=== PATIENT | female | born 1980 | race Caucasian/White ===

== ENCOUNTER 2025-06-16 08:02 | Outpatient (AMB) | payer OTHER, SELFPAY ==
--- NOTE | 2025-06-16 10:08 | MHC.OFFVISWM ---
VS Expanded 06/16/25 10:36 Height 5 ft 3 in Weight 256 lb BMI 45.3 Body Fat % 49.5 Body Fat Mass 126.8 Fat Free Mass 129.2 Visceral Fat Rating 16 Body Water % 36.1 Body Water Mass 92.4 Basal Metabolic Rate/Score 1,853 Intake Visit Reasons: [employer] [facility] BMI 45.4 Allergies lamotrigine (From Lamictal) Allergy (Mild, Verified 06/16/25 10:08) HIVES lithium Allergy (Unknown, Verified 06/16/25 10:08) Unknown Medication List - Last Reconciled 06/16/25 by Rigo Jones MD atorvastatin 40 mg PO DAILY cariprazine (Vraylar) 3 mg PO DAILY fluticasone propionate 50 mcg/actuation 2 sprays intranasal DAILY loratadine 10 mg PO DAILY lorazepam 0.5 - 1 mg PO TID tirzepatide (weight loss) (Zepbound) 5 mg subcut QWEEK topiramate 50 mg PO BID HPI HPI [employer] [facility] BMI 45.4: Details: Start time: 9.59am, End time: 10.44am ?I spent 40 minutes speaking with the patient on the phone plus an additional 5 minutes reviewing and updating records for a total of 45 minutes HPI Comments Details: Previous weight loss efforts: Semaglutide (lost and gained 40lbs), Tirzepatide Wakes up: 8am, Sleeps: 11pm Breakfast: Premier protein shake liquid Lunch: Premier shake Dinner: 5pm (shrimps, chicken, eat out) Snacks: 10am (Mor crackers with peanut butter) Exercise: Gym membership Beverages: Coffee: (2 cups/d with vanilla creamer), Tea: none, Soda: Diet Coke, Juice: none, ETOH: none PFSH Medical History (Updated 06/16/25 @ 10:13 by Rigo Jones MD) Anxiety Bipolar 1 disorder Hyperlipidemia Morbid obesity Surgical History (Updated 05/17/25 @ 09:10 by Marianela Castellon CMA) Hx of wisdom tooth extraction Hx of dilation and curettage Family History (Updated 05/17/25 @ 09:12 by Marianela Castellon CMA) Mother Diabetes Mental health disorder High cholesterol Hypertension Father High cholesterol Hypertension Social History (Updated 05/17/25 @ 09:12 by ANDREA Pina Alcohol intake: never Tobacco use type: Smokeless Tobacco Physical Exam Vital Signs: BMI result Body Mass Index 45.3 Telehealth Telehealth Telehealth Platform: Telephone Location of provider rendering services: practice address Location of patient: address on file Patient Identification confirmed using: Name, : Yes Telehealth method: voice only Patient verbally consented to treatment: Yes Patient verbally consented to billing insurance company: Yes Patient informed of any privacy concerns related to visit: Yes Minutes spent on Phone/Video with Pt.: 45 Assessment & Plan Assessment & Plan (1) Morbid obesity: Code(s): E66.01 - Morbid (severe) obesity due to excess calories Category: Medical Plan: 1. As we discussed, based on your present BMI you are approximately 130lbs overweight. In my opinion, for any weight loss strategy to be successful should have a high probability to help you lose at least 110lbs out of 130lbs of the extra weight you carry. We discussed about the lap sleeve gastrectomy. In my opinion this is the best option to solve your problem based on your situation and should be used in conjunction with the two previous options. A good strategy to make this decision to proceed with surgery, is to set some goals with the lifestyle intervention and medication options: If you don't lose at least 10lbs the first 6 weeks after starting the program or at least 10% in 3 months. ?I emphasized the importance of close follow-up, adherence to instructions and good communication. The surgery does not replace the need to change your lifestlyle which is the cause of the obesity problem. The surgery provides the motivation to try again to change your lifestyle, it reduces the appetite and make the transition to a better lifestyle easier and doubles the amount of weight you would lose compared to doing the lifestyle change without the surgery. You will need to be on a liquid diet with protein shakes for 2 weeks before surgery to maximize weight loss and boost your nutritional status to recover better from surgery and also for the first two weeks after surgery to let the stomach heal before we introduce other foods. After the first 2 weeks we will introduce protein bars and soft foods like scrambled eggs, cottage cheese and yogurt and after the 6th week will introduce meat, fish and cooked vegetables in small amounts. Over time you should be able to eat everything in small amounts. Side effects like nausea, vomiting, heartburn or abdominal pain are not common in the practice unless you are not following in the practice. This operation requires lifetime commitment to following in our practice and communication with me. You will much less weight and experience side effects if you don?t communicate or not following in the practice. Complications are rare and in our practice is about 1/10 of the national average. 2. You will receive a link of our software carly to generate an individualized nutritional and exercise plan specific for you. Please send me a screenshot of the plans you will generate Meal to include lean meat (beef, fish, pork, turkey, chicken), or english yogurt, or egg whites, or beans with a salad with olive oil and fruits (berries, pears, apples, kiwi). Avoid salt, breads, potatoes, rice, pasta, desserts. ?3. If you choose shakes, each shake would be drunk slowly, like coffee in a period of 2 hours. ?4. If you choose bars, cut each bar in 4 pieces and eat each piece in 30min ?to make each bar last 2 hours. ?5. I emphasized the importance of measuring accurately the food portion and measure it when serving the food in plate ?6. The meal portions include a specific number of forks of meat and salad. You always eat the meat portion but you can replace up to half of salad/vegetables portion with rice, potatoes or pasta, or a fruit ?if you like. The less you do it the better weight loss will be. ?7. One full-size fork is what it can be scooped on the fork without falling aside and not what can be bit with the fork. Use regular forks like those you find in a typical restaurant. ?8.? Please buy the body composition scale we discussed and send me weight measurements as soon as possible and then once a week. Always include your diet and exercise plan. 9. The best exercise choice would be to use your treadmill at the gym. You can create and exercise plan with the [employer] car[employer]. ?10.?It is important of avoiding and for at least 18 months postoperatively and has been discussed at the infosession. ?11. Goal is to lose at least 1.5-2lbs per week ?12. Goal to lose at least 10% of your weight, which is about 26lbs. Minimum weight goal: 230lbs 13. Please follow the diet plan exactly without any change. If you don't like something about the plan or you feel hungry you need to communicate with me so I can help you revise the plan. You should not change the plan yourself. 14. Continue the Zepbound once a week and continue to receive your prescriptions from your PCP. We discussed the potential side effects of Wegovy such as nausea, vomiting, abdominal pain, diarrhea and constipation and you will need to contact me if any of these symptoms occur or for any other new symptom you may experience
[2025-06-16 10:36] VITALS: BMI 45.3
== END 2025-06-16 10:48 | disposition home or self-care (01) ==
LOC: HO.HBS 08:02
PROVIDERS: PCP Nurse Practitioner; Visit Provider Surgery
DX: E66.01 Morbid (severe) obesity due to excess calories (principal)
CPT/HCPCS: 99204